=== PATIENT | female | born 1955 | race Caucasian/White ===

== ENCOUNTER 2016-08-05 18:52 | Emergency (ER) | payer MEDICARE, MEDICAID ==
[~2016-08-05] VITALS: Ht 152.4 cm; Wt 62.6 kg
[~2016-08-05 18:52] MED LIST: BENA40TA2; BENA40TA2 PO; OMEP40CA37 PO
[2016-08-05] MEDS ORDERED: PROCHLORPERAZINE MALEATE 10 MG TABLET ONE (19:28)
[2016-08-05] MEDS ORDERED: LORAZEPAM 1 MG TABLET ONE (19:28)
[2016-08-05] MEDS ORDERED: LORAZEPAM 1 MG TABLET PO ONE (19:30)
[2016-08-05] MEDS ORDERED: PROCHLORPERAZINE MALEATE 10 MG TABLET PO ONE (19:30)
[2016-08-05] MEDS ORDERED: LORAZEPAM INJ 2 MG/ML VIAL ONE (20:58)
[2016-08-05] MEDS ORDERED: LORAZEPAM INJ 2 MG/ML VIAL IV ONE (21:00)
[2016-08-05] MEDS ORDERED: PROCHLORPERAZINE EDISYLATE 10 MG/2 ML VIAL IVP ONE (21:00)
[2016-08-05 23:28] VITALS: BP 135/76
== END 2016-08-05 23:29 | disposition home or self-care (01) ==
LOC: ER 19:02
DX: F41.9 Anxiety disorder, unspecified (principal); I10 Essential (primary) hypertension; Z90.5 Acquired absence of kidney; Z88.8 Allergy status to other drugs, medicaments and biological substances
CPT/HCPCS: 96374; 96375; 99284; A4606; J2060; Q0164; Z7610

== ENCOUNTER 2016-08-07 06:59 | Emergency (ER) | payer MEDICARE, MEDICAID ==
--- NOTE | 2016-08-07 07:38 | NUR ---
CALLED TO TRIAGE, SHE LEFT PER NOEMY IN ADMITTING
== END 2016-08-07 07:40 | disposition left against medical advice (07) ==
LOC: ER 07:02
DX: Z53.21 Procedure and treatment not carried out due to patient leaving prior to being seen by health care provider (principal)

== ENCOUNTER 2019-01-08 10:41 | Outpatient (CLI) | payer MEDICARE, OTHER ==
[~2019-01-08 10:41] MED LIST changes: -BENA40TA2; -BENA40TA2 PO; +BENA40TA8; +BENA40TA8 PO
[2019-01-08] MEDS ORDERED: IV NS 0.9% 250 ML IV ONE (14:32)
[2019-01-08] MEDS ORDERED: CT SWABBABLE VALVE TRANS SET 1 EA INFUS.SET MC ONE (14:32)
[2019-01-08] MEDS ORDERED: IOHEXOL-350 100 ML VIAL IV ONE ×2 (14:32→15:00)
[2019-01-08] MEDS ORDERED: METOPROLOL TARTRATE INJ 5 MG/5 ML AMPUL ONE (14:47)
[2019-01-08] MEDS ORDERED: NITROGLYCERIN 0.4 MG/TAB BOTTLE ONE (14:50)
--- NOTE | 2019-01-08 17:04 | NUR ---
pt iv infiltrated during CTA injection of contrast on left AC. Midline was ordered to complete procedure.
== END 2019-01-08 23:59 | disposition home or self-care (01) ==
LOC: CT 10:41
PROVIDERS: ATTEND Internal Medicine Interventional Cardiology
DX: J98.09 Other diseases of bronchus, not elsewhere classified (principal); M47.814 Spondylosis without myelopathy or radiculopathy, thoracic region; I72.8 Aneurysm of other specified arteries
CPT/HCPCS: 75574; J3490; J7050; Q9967 ×2

== ENCOUNTER 2020-12-26 21:45 | Inpatient (IN) | payer MEDICARE, OTHER ==
[~2020-12-26] VITALS: Ht 154.9 cm; Wt 58.5 kg
[~2020-12-26 21:45] MED LIST changes: +OMEP40CA21 PO; -OMEP40CA37 PO
--- NOTE | 2020-12-26 22:52 | NUR ---
PT BIBDAUGHTER C/O BILATERAL FLANK PAIN X2 WEEKS. PT AAOX4 BREATHING EVENLY AND UNLABORED. PER PT, SHE HAS BEEN SEEN AT [facility] AND BEEN TREATED FOR KIDNEY INFECTION WITH OMNICEFF 300MG AND MOTRIN 400MG DRINK WAITER. PT ATTACHED TO MONITOR AND POX. MD AT BEDSIDE. PT GIVEN BLANKET AND CALL LIGHT WITHIN REACH
[2020-12-26] MEDS ORDERED: HYDROMORPHONE 1 MG/1 ML DISP.SYRIN ONE (23:43)
[2020-12-26 23:53] LABS: BASOPHILS # (AUTO) 0.1 K/uL (0.0-0.2); BASOPHILS % (AUTO) 0.7 % (0.0-2.0); EOSINOPHILS % (AUTO) 1.5 % (0.0-6.0); HEMATOCRIT 41 % (33-45); HEMOGLOBIN 13.4 g/dL (11.5-14.8); LYMPHOCYTES # (AUTO) 3.3 K/uL (0.8-4.8); LYMPHOCYTES % (AUTO) 32.7 % (20.0-44.0); MEAN CORPUSCULAR HGB CONC 33 g/dl (31.0-36.0); MEAN CORPUSCULAR VOLUME 89 fL (82-100); MONOCYTES % (AUTO) 9.7 % (2.0-12.0); NEUTROPHILS # (AUTO) 5.7 K/uL (1.8-8.9); NEUTROPHILS % (AUTO) 55.4 % (43.0-81.0); PLATELET COUNT (AUTO) 358 K/uL (150-450); RED BLOOD CELL COUNT(AUTO) 4.63 MIL/uL (4.0-5.2); WHITE BLOOD COUNT (AUTO) 10.2 K/uL (4.3-11.0)
--- NOTE | 2020-12-26 23:56 | NUR ---
BLOOD OBTAINED AND SENT TO LAB
[2020-12-27] MEDS ORDERED: HYDROMORPHONE INJ 2 MG/ML DISP.SYRIN IV ONE
[2020-12-27] MEDS ORDERED: IV NS 0.9% 1,000 ML BAG IV ONE
[2020-12-27 00:03] LABS: CALCIUM, SERUM 9.3 mg/dL (8.5-10.1); CARBON DIOXIDE 25 mmol/L (21-32); CHLORIDE 101 mmol/L (98-107); GLUCOSE 150 mg/dL (74-106); POTASSIUM 3.9 mmol/L (3.5-5.1); SODIUM SERUM 136 mmol/L (136-145); UREA NITROGEN, BLOOD 33 mg/dL (7-18)
--- NOTE | 2020-12-27 00:03 | NUR ---
XRAY AT BEDSIDE
[2020-12-27 00:12] LABS: ALANINE AMINOTRANSFERASE 24 U/L (12-78); ALBUMIN 3.4 g/dL (3.4-5.0); ALKALINE PHOSPHATASE 62 U/L (46-116); ASPARTATE AMINOTRANSFERASE 13 U/L (15-37); BILIRUBIN,DIRECT 0.1 mg/dL (0.0-0.2); BILIRUBIN,TOTAL 0.3 mg/dL (0.2-1.0); LIPASE 146 U/L (73-393); TOTAL PROTEIN, SERUM 7.2 g/dL (6.4-8.2)
--- NOTE | 2020-12-27 00:16 | NUR ---
COVID SWAB SENT TO LAB
--- NOTE | 2020-12-27 00:16 | NUR ---
PT PLACED ON 2L O2 VIA NC FOR COMFORT DURING SLEEP
--- NOTE | 2020-12-27 01:24 | NUR ---
CALLED DR. HUDSON [phone] [facility] 1
--- NOTE | 2020-12-27 01:26 | NUR ---
MS 321-1
--- NOTE | 2020-12-27 01:53 | NUR ---
GAVE REPORT TO JAGRUTI BERMUDEZ FOR NOEMI
[2020-12-27] MEDS ORDERED: IV D5/ 0.9% NACL 1,000 ML IV ONE (03:00)
[2020-12-27] MEDS ORDERED: ACETAMINOPHEN 325 MG TABLET PO PRN (03:00)
[2020-12-27] MEDS ORDERED: LORAZEPAM INJ 2 MG/ML VIAL IV PRN (03:00)
--- NOTE | 2020-12-27 03:00 | NUR ---
MS DEVELOPMENT PROFESSIONAL NOTE: RECEIVED PATIENT FORM ER AT 0245 VIA WHEELCHAIR, NOCOMPLAIN OF PAIN AND DISCOMFORT, PATIENT IS A/OX4 AMBULATORY WITH SUPERVISION, ON REGULAR DIET, IV LINE ON RIGHT HAND#20 WITH ONGOING D5 NSS@75ML PER HOUR INFUSING WELL, BED IN LOW POSITION, ORIENTED TO ROOM, SKIN ASSESSMENT DONE, NO SKIN ISSUES OBSERVED, INVENTORY OF ITEM DONE,PATIENT KEPT CLEAN AND DRY, ALL NEEDS MET, WILL CONTINUE TO MONITOR.
[2020-12-27] MEDS ORDERED: CEFTRIAXONE 1 G VIAL ONE ×2 (03:35→03:36)
[2020-12-27] MEDS: PANTOPRAZOLE 40 MG VIAL IV SCH (03:47)
[2020-12-27] MEDS: CEFTRIAXONE 2 G in IV D5W 100 ML IV SCH (04:11)
[2020-12-27] MEDS: HYDROMORPHONE 1 MG/1 ML DISP.SYRIN IV PRN (04:46)
[2020-12-27 05:02] VITALS: BP 131/70
[2020-12-27 06:12] LABS: BASOPHILS % (AUTO) 0.4 % (0.0-2.0); EOSINOPHILS % (AUTO) 1.5 % (0.0-6.0); HEMATOCRIT 35 % (33-45); HEMOGLOBIN 11.6 g/dL (11.5-14.8); LYMPHOCYTES # (AUTO) 3.2 K/uL (0.8-4.8); MEAN CORPUSCULAR HGB CONC 33 g/dl (31.0-36.0); MEAN CORPUSCULAR VOLUME 89 fL (82-100); MONOCYTES # (AUTO) 0.8 K/uL (0.1-1.30); NEUTROPHILS # (AUTO) 4.7 K/uL (1.8-8.9); NEUTROPHILS % (AUTO) 53.1 % (43.0-81.0); PLATELET COUNT (AUTO) 300 K/uL (150-450); RED BLOOD CELL COUNT(AUTO) 3.95 MIL/uL (4.0-5.2); WHITE BLOOD COUNT (AUTO) 8.8 K/uL (4.3-11.0)
[2020-12-27 06:54] LABS: CALCIUM, SERUM 8.1 mg/dL (8.5-10.1); CREATININE 0.7 mg/dL (0.6-1.3); MAGNESIUM 2.1 mg/dL (1.8-2.4)
--- NOTE | 2020-12-27 07:12 | NUR ---
MS RN OPENING NOTES RECEIVED PATIENT RESTING IN BED. PATIENT IS A/O X4. PATIENT IS BREATHING EVENLY AND NONLABORED ON ROOM AIR. PATIENT DOES NOT SHOW ACUTE SIGNS OF DISTRESS. PATIENT HAS IV ACCESS ON R HAND # 18 RUNNING D2 1/2 NS @ 75 ML/HR, PATENT AND INTACT. PATIENT DOES NOT COMPLAIN OF PAIN AT THIS TIME. SAFETY MEASURES ARE IN PLACE. BED LOW LOCKED CALL LIGHT WITHIN REACH, SIDE RAILS UP X 2. WILL CONTINUE TO MONITOR
--- NOTE | 2020-12-27 07:20 | NUR ---
RN CLOSING NOTES: PATIENT AWAKEN BED, BED IN LOW POSITION, CALL LIGHTS WITHIN REACH, NO COMPLAIN OF PAIN AND DISCOMFORT KEPT CLEAN AND DRY, ALLNEEDS MET, ENDORSE TO INCOMING SHIFT.
[2020-12-27 08:00] VITALS: BP 112/67
--- NOTE | 2020-12-27 08:30 | NUR ---
RN NOTE ORDER FOR MRI, PATIENT AGREED TO PROCEDURE, CHECK LIST COMPLETED.
[2020-12-27] MEDS ORDERED: DULO20CA19 PO (08:36)
[2020-12-27] MEDS ORDERED: ZOLP5TAB8 PO (08:36)
[2020-12-27] MEDS ORDERED: ZOLPIDEM TARTRATE 5 MG TABLET PO PRN (09:30)
[2020-12-27 16:00] VITALS: BP 125/71
[2020-12-27] MEDS: DULOXETINE HCL 20 MG CAPSULE.DR PO SCH (16:07)
--- NOTE | 2020-12-27 18:16 | NUR ---
RN NOTE PATIENT COMPLAINED OF FEELING ANXIOUS, PATIENT CRYING AND UPSET. PATIENT ASKED FOR PRN PAIN MEDICATION AND CHANGE OF ROOM. PATIENT WAS CHANGED TO ROOM 312-2 PRN ANTIANXIETY GIVEN.
--- NOTE | 2020-12-27 18:33 | NUR ---
MS RN CLOSING NOTES PATIENT RESTING IN BED. PATIENT IS A/O X4. PATIENT IS BREATHING EVENLY AND NONLABORED ON ROOM AIR. PATIENT DOES NOT SHOW ACUTE SIGNS OF DISTRESS. PATIENT HAS IV ACCESS ON R HAND # 18 RUNNING D2 1/2 NS @ 75 ML/HR, PATENT AND INTACT. PATIENT DOES NOT COMPLAIN OF PAIN AT THIS TIME. ALL MEDICATION GIVEN ORDERED SAFETY MEASURES ARE IN PLACE. BED LOW LOCKED CALL LIGHT WITHIN REACH, SIDE RAILS UP X 2. WILL ENDORSE TO ONCOMING SHIFT
--- NOTE | 2020-12-27 19:34 | NUR ---
MS RN OPENING NOTES: RECEIVED PATIENT AWAKE IN BED, NO COMPLAIN OF PAIN AND DISCOMFORT AT THIS TIME BED IN LOW POSITION, CALL LIGHTS WITHIN REACH, PATIENT IS A/0X4, AMBULATORY WITH SUPERVISION, SKIN IS INTACT, IV LINE AT RT HAND #18 D51/2 NSS @75ML PER HR, KEPT CLEAN AND DRY, ALL NEEDS MET, WILL CONTINUE TO MONITOR.
[2020-12-27 20:00] VITALS: BP 137/77
[2020-12-28] MEDS: PANTOPRAZOLE 40 MG VIAL IV SCH (03:19)
[2020-12-28] MEDS: CEFTRIAXONE 2 G in IV D5W 100 ML IV SCH (04:05)
--- NOTE | 2020-12-28 07:20 | NUR ---
RN CLOSING NOTES: PATIENT PLACE IN BED COMFORTABLY, , BED IN LOW POSITION, CALL LIGHTS WITHIN REACH NO COMPLAIN OF PAIN AND DISCOMFORT AT THIS TIME, PATIENT KEPT CLEAN AND DRY, ALL NEEDS MET, WILL CONTINUE TO MONITOR.
[2020-12-28 08:00] VITALS: BP 178/106
[2020-12-28] MEDS: BENAZEPRIL HCL 5 MG TABLET PO SCH (09:36)
[2020-12-28] MEDS: HYDROMORPHONE 1 MG/1 ML DISP.SYRIN IV PRN ×2 (09:56→18:05)
[2020-12-28] MEDS ORDERED: CLONIDINE HCL 0.1 MG TABLET PO PRN (10:30)
[2020-12-28] MEDS: DULOXETINE HCL 20 MG CAPSULE.DR PO SCH ×2 (11:49→18:04)
[2020-12-28 16:00] VITALS: BP 131/78
--- NOTE | 2020-12-28 19:30 | NUR ---
RN OPENING NOTE PATIENT IN BED, AWAKE. A/O X 3. ABLE TO MAKE NEEDS KNOWN. PATIENT BREATHING EVEN AND UNLABORED, TOLERATING ROOM AIR AT 100% O2 SATURATION. PATIENT DOES NOT COMPLAIN OF ANY PAIN OR N/V AT THIS TIME. IV ACCESS PATENT AND INTACT. SAFETY MEASURES IN PLACE: BED LOCKED AND IN LOWEST POSITION, SIDE RAILS UP, CALL LIGHT WITHIN REACH. WILL MONITOR PATIENT CLOSELY.
[2020-12-28 20:00] VITALS: BP 147/86
[2020-12-28] MEDS ORDERED: TRAZODONE 50 MG TABLET PO ONE (22:30)
[2020-12-28] MEDS: clonazePAM 0.5 MG TABLET PO SCH (22:52)
[2020-12-29] MEDS: CEFTRIAXONE 2 G in IV D5W 100 ML IV SCH ×2 (03:51→05:00)
--- NOTE | 2020-12-29 05:14 | NUR ---
UNABLE TO ADMINISTER ROCEPHIN AT THIS TIME. UNABLE TO OBTAIN A HEP LOCK. GAIL CHARGE NURSE AND CHARITY RN, ATTEMPTED MULTIPLE TIMES WELL. ATTEMPTS UNSUCCESSFUL. WILL INFORM MD REGARDING MIDLINE INSERTION.
[2020-12-29 06:24] LABS: BASOPHILS % (AUTO) 0.5 % (0.0-2.0); HEMATOCRIT 39 % (33-45); HEMOGLOBIN 12.8 g/dL (11.5-14.8); LYMPHOCYTES # (AUTO) 2.3 K/uL (0.8-4.8); LYMPHOCYTES % (AUTO) 36.3 % (20.0-44.0); MEAN CORPUSCULAR HGB CONC 33 g/dl (31.0-36.0); MEAN CORPUSCULAR VOLUME 89 fL (82-100); MONOCYTES # (AUTO) 0.6 K/uL (0.1-1.30); MONOCYTES % (AUTO) 9.1 % (2.0-12.0); NEUTROPHILS # (AUTO) 3.3 K/uL (1.8-8.9); NEUTROPHILS % (AUTO) 51.1 % (43.0-81.0); PLATELET COUNT (AUTO) 253 K/uL (150-450); RED BLOOD CELL COUNT(AUTO) 4.32 MIL/uL (4.0-5.2); WHITE BLOOD COUNT (AUTO) 6.5 K/uL (4.3-11.0)
[2020-12-29 07:25] LABS: CALCIUM, SERUM 9.2 mg/dL (8.5-10.1); CREATININE 0.6 mg/dL (0.6-1.3); MAGNESIUM 2.2 mg/dL (1.8-2.4); POTASSIUM 4.1 mmol/L (3.5-5.1)
--- NOTE | 2020-12-29 07:30 | NUR ---
RN CLOSING NOTE PATIENT IN BED AWAKE, ABLE TO MAKE NEEDS KNOWN. OBTAINED CONSENT FOR CT UROGRAM WITH CONTRAST WELL AN ORDER FOR A MIDLINE INSERTION. ALL NEEDS MET AND ATTENDED, ALL ORDERS CARRIED OUT. ENDORSED TO DAY SHIFT NURSE FOR NOEMI.
[2020-12-29 08:00] VITALS: BP 154/102
[2020-12-29] MEDS: PANTOPRAZOLE 40 MG TABLET.DR PO SCH (08:12)
[2020-12-29] MEDS: BENAZEPRIL HCL 5 MG TABLET PO SCH (08:13)
--- NOTE | 2020-12-29 10:18 | NUR ---
MS RN OPENING NOTES RECEIVED PATIENT IN BED, A/O X4. PATIENT ON ROOM AIR; BREATHING EVEN AND UNLABORED, NO COMPLAINS OF PAIN AT THIS TIME. NO IV LINE PRESENT; THERE IS AN ORDER FOR MIDLINE. SAFETY PRECAUTIONS IN PLACE; BED IN LOW POSITION AND LOCKED, RAILS UP X2, CALL LIGHT WITHIN REACH. WILL CONTINUE TO MONITOR PATIENT.
[2020-12-29] MEDS: clonazePAM 0.5 MG TABLET PO SCH ×2 (10:30→22:02)
[2020-12-29 16:00] VITALS: BP 154/101
[2020-12-29] MEDS ORDERED: CT SWABBABLE VALVE TRANS SET 1 EA INFUS.SET MC ONE (17:32)
[2020-12-29] MEDS ORDERED: IV NS 0.9% 250 ML IV ONE (17:32)
[2020-12-29] MEDS ORDERED: IOHEXOL-300 100 ML VIAL IV ONE (17:32)
[2020-12-29] MEDS: HYDROMORPHONE 1 MG/1 ML DISP.SYRIN IV PRN (18:50)
--- NOTE | 2020-12-29 18:54 | NUR ---
MS RN NOTES PATIENT COMPLAINING OF FLANK PAIN /8 OUT OF 10. PRN DILAUDID 0.5 ML ADMINISTERED. WILL REASSESS.
--- NOTE | 2020-12-29 19:15 | NUR ---
RN OPENING NOTE PATIENT IN BED, AWAKE. A/O X 3. ABLE TO MAKE NEEDS KNOWN. PATIENT BREATHING EVEN AND UNLABORED, TOLERATING ROOM AIR AT 98% O2 SATURATION. PATIENT COMPLAINING OF PAIN, DILAUDID GIVEN RECENTLY. NO N/V AT THIS TIME. FRANK MIDLINE PATENT AND INTACT. SAFETY MEASURES IN PLACE: BED LOCKED AND IN LOWEST POSITION, SIDE RAILS UP, CALL LIGHT WITHIN REACH. WILL MONITOR PATIENT CLOSELY.
--- NOTE | 2020-12-29 19:19 | NUR ---
MS RN CLOSING NOTES PATIENT REMAINS IN BED, A/O X4. PATIENT ON ROOM AIR; BREATHING EVEN AND UNLABORED. PAIN TREATED WITH PRN PAIN MEDICATION. MIDLINE AT FRANK IN PLACE AND INTACT. ALL NEEDS ATTENDED THROUGHOUT THE DAY. SAFETY PRECAUTIONS IN PLACE; BED IN LOW POSITION AND LOCKED, RAILS UP X2, CALL LIGHT WITHIN REACH. PATIENT ENDORSED FOR NOEMI TO BENEFITS REPRESENTATIVE NURSE.
[2020-12-29 20:00] VITALS: BP 134/96
[2020-12-29] MEDS ORDERED: TRAZODONE 50 MG TABLET PO SCH (22:00)
[2020-12-29] MEDS ORDERED: POLYETHYLENE GLYCOL 3350 17 GM POWD.PACK PO PRN (22:30)
[2020-12-29] MEDS ORDERED: BISACODYL SUPP (10 MG) 10 MG/SUPP.RECT SUPP.RECT RC PRN (22:30)
[2020-12-29] MEDS ORDERED: NA PHOS,M-B/NA PHOS,DI-BA 1 EA ENEMA RC PRN (22:30)
--- NOTE | 2020-12-30 06:38 | NUR ---
RN OPENING NOTE PATIENT IN BED, EYES CLOSED EASILY AROUSED. PATIENT BREATHING EVEN AND UNLABORED, TOLERATING ROOM AIR AT 97% O2 SATURATION. DOES NOT COMPLAIN OF PAIN, N/V AT THIS TIME. FRANK MIDLINE PATENT AND INTACT. SAFETY MEASURES IMPLEMENTED. ALL ORDERS CARRIED OUT, ALL NEEDS MET AND ATTENDED. WILL ENDORSE TO DAY SHIFT NURSE FOR NOEMI. Addendum: 12/30/20 at 0641 by GULSHAN CALIXTO RN CLOSING NOTE
--- NOTE | 2020-12-30 07:29 | NUR ---
MS RN OPENING NOTES RECEIVED PATIENT IN BED, ASLEEP. PATIENT ON ROOM AIR; BREATHING EVEN AND UNLABORED, NO SOB PRESENT AT THIS TIME. FRANK MIDLINE PRESENT AND INTACT. NO S/S OF PAIN SUCH FACIAL GRIMACING, GUARDING OR MOANING. SAFETY PRECAUTIONS IN PLACE; BED IN LOW POSITION AND LOCKED, RAILS UP X2, CALL LIGHT WITHIN REACH. WILL CONTINUE TO MONITOR PATIENT.
[2020-12-30 08:00] VITALS: BP_SYST 141; BP_SYST 150; BP_DIAS 100; BP_DIAS 80
[2020-12-30] MEDS: PANTOPRAZOLE 40 MG TABLET.DR PO SCH (08:18)
[2020-12-30 08:19] VITALS: BP 141/100
[2020-12-30] MEDS: BENAZEPRIL HCL 5 MG TABLET PO SCH (08:19)
[2020-12-30] MEDS: clonazePAM 0.5 MG TABLET PO SCH (10:30)
[2020-12-30] MEDS ORDERED: OXYC5CAP18 PO (10:38)
[2020-12-30] MEDS ORDERED: CLON0.5T4 PO (10:38)
--- NOTE | 2020-12-30 12:10 | NUR ---
MS SHEET METAL ROOFER NOTES PATIENT DISCHARGED HOME IN MEDICALLY STABLE CONDITION. PATIENT A/O X4, ON ROOM AIR AND ABLE TO MAKE NEEDS KNOWN. ALL DISCHARGE PAPERWORK READY AND TEACHING PROVIDED TO PATIENT REGARDING PHYSICIAN ORDERS, MEDICATIONS AND FOLLOW UP; PATIENT VERBALIZED UNDERSTANDING AND PAPERS SIGNED. BELONGINGS ACCOUNTED FOR AND FORM SIGNED WELL. SKIN INTACT. MIDLINE REMOVED BEFORE PATIENT LEFT THE UNIT. WRISTBAND REMOVED WELL. PATIENT LEFT THE FLOOR AT 1210 ACCOMPANIED BY DAUGHTER AND EMBOSSER OPERATOR.
== END 2020-12-30 12:10 | disposition home or self-care (01) | DRG 690 ==
LOC: ER 21:48 → MED 12-27 01:33
PROVIDERS: ADMIT Legal Medicine; ATTEND Legal Medicine
PROC: 05HB33Z Insertion of Infusion Device into Right Basilic Vein, Percutaneous Approach (ICD-10-PCS; principal; 2020-12-29)
DX: N11.9 Chronic tubulo-interstitial nephritis, unspecified (principal); G12.9 Spinal muscular atrophy, unspecified; I10 Essential (primary) hypertension; Z90.5 Acquired absence of kidney; M21.372 Foot drop, left foot; Z20.822 Contact with and (suspected) exposure to COVID-19; F41.1 Generalized anxiety disorder; Z88.8 Allergy status to other drugs, medicaments and biological substances; Z79.899 Other long term (current) drug therapy; F32.9 Major depressive disorder, single episode, unspecified; Z87.440 Personal history of urinary (tract) infections
CPT/HCPCS: 36415; 71045-TC; 72146-TC; 72148-TC; 74178; 80048-TC; 80076-TC; 83690-TC; 83735-TC; 84484-TC; 85025-TC; 87081-TC; 87086-TC; C9113; C9803; G0378; J0696; J1170; J2060; J7030; J7042; J7050; J7060; Q9967

== ENCOUNTER 2025-06-01 16:55 | Emergency (ER) | payer MEDICARE, OTHER ==
[~2025-06-01] VITALS: Ht 154.9 cm; Wt 59.0 kg
[~2025-06-01 16:55] MED LIST changes: -BENA40TA8; +DULO20CA19 PO; -OMEP40CA21 PO; +ZOLP5TAB8 PO
[2025-06-01] MEDS ORDERED: LORAZEPAM INJ 2 MG/ML VIAL ONE (18:21)
[2025-06-01] MEDS: LORAZEPAM 4 MG/ML VIAL IV ONE (18:25)
[2025-06-01] MEDS ORDERED: METOCLOPRAMIDE HCL 10 MG/2 ML VIAL IV ONE (19:00)
[2025-06-01] MEDS ORDERED: IV NS 0.9% 1,000 ML BAG IV ONE (20:30)
[2025-06-01] MEDS: METOCLOPRAMIDE HCL 10 MG/2 ML VIAL IV ONE (20:35)
[2025-06-01] MEDS: IV D5W 100 ML IV ONE (20:35)
[2025-06-01] MEDS ORDERED: HYDR-3642 PO (20:37)
[2025-06-02 07:09] VITALS: BP 122/85; TEMP 98.2; O2SAT 95
== END 2025-06-02 07:09 | disposition home or self-care (01) ==
LOC: ER 17:05
DX: F41.9 Anxiety disorder, unspecified (principal); I10 Essential (primary) hypertension; Z90.5 Acquired absence of kidney
CPT/HCPCS: 99285; 96374; 96375; 96372; J2060; J1200; J2765; J7060 ×2; J7030